=== PATIENT | female | born 1985 | race Caucasian/White ===

== ENCOUNTER 2018-01-25 09:51 | Emergency (ER) | payer OTHER ==
[2018-01-25] MEDS ORDERED: NS 1,000 ML IV ONE (10:56)
--- NOTE | 2018-01-25 11:00 | EDPHY ---
H & P Time Seen by Provider: 01/25/18 10:59 HPI/ROS: Chief complaint. Nausea and vomiting with HPI. Patient is a 2 para 1 32 year old female. 7 half weeks . Nausea and vomiting with this . Has been using coulee just and Zofran but continues to have emesis and decreased food intake. No abdominal pain or vaginal bleeding or spotting. 1 visit to machine plug shaper and apparently ultrasound shows a normal intrauterine . Patient did have significant hyperemesis with her 1st as well. No fever. No chest pain or shortness of breath ROS 10 systems were reviewed and negative with the exception of the elements mentioned in the history of present illness Past Medical/Surgical History: Hyper emesis, asthma Social History: , nonsmoker, no alcohol Smoking Status: Never smoked Physical Exam: General Appearance: Alert pleasant well-developed female mild distress vital signs significant for heart rate 104 Eyes: Pupils equal and round no pallor or injection. ENT, mucous membranes are dry Respiratory: There are no retractions, lungs are clear to auscultation. Cardiovascular: Regular rate and rhythm. Gastrointestinal: Abdomen is soft, gravid, nontender. Normal bowel sounds and no masses Neurological: Awake and alert, sensory and motor exams grossly normal. Skin: Warm and dry, no rashes. Musculoskeletal: Neck is supple nontender. Extremities symmetrical, full range of motion. Psychiatric: Patient is oriented X 3, there is no agitation. Constitutional: Initial Vital Signs Temperature (C) 36.8 C 01/25/18 10:18 Heart Rate 104 H 01/25/18 10:18 Respiratory Rate 16 01/25/18 10:18 Blood Pressure 107/64 01/25/18 10:18 O2 Sat (%) 97 01/25/18 10:18 O2 Delivery Mode Room Air Allergies/Adverse Reactions: No Known Allergies Allergy (Unverified 01/25/18 10:17) Home Medications: Medication Instructions Recorded Albuterol 01/25/18 Folic Acid 01/25/18 Zofran 01/25/18 Medical Decision Making Procedures: Intravenous fluid replacement with D5 L R. 1 L of saline is given as well. Reglan Benadryl IV. Thiamin the IV. ED Course/Re-evaluation: Re-evaluation 1:50 p.m.. Patient is stable. She has been up to urinate and urine results are pending. She is taking oral ice chips without emesis Patient and I discussed laboratory evaluation, treatment plan including criteria for return importance follow-up further evaluation. She expresses understanding and agreement Urine has trace leukocytes. It is sent for culture and sensitivity Re-evaluation again at 2:50 p.m. Patient is stable. She feels well for discharge Differential Diagnosis: Hyperemesis gravidarum. Have considered electrolyte abnormalities, dehydration , urinary tract infection - Data Points Laboratory Results: Laboratory Results 01/25/18 11:00 01/25/18 11:00 01/25/18 01/25/18 01/25/18 13:48 11:00 11:00 WBC 8.75 10^3/uL 10^3/uL (3.80-9.50) RBC 5.08 10^6/uL 10^6/uL (4.18-5.33) Hgb 15.4 g/dL g/dL (12.6-16.3) Hct 43.3 % % (38.0-47.0) MCV 85.2 fL fL (81.5-99.8) MCH 30.3 pg pg (27.9-34.1) MCHC 35.6 g/dL g/dL (32.4-36.7) RDW 12.0 % % (11.5-15.2) Plt Count 191 10^3/uL 10^3/uL (150-400) MPV 10.2 fL fL (8.7-11.7) Neut % (Auto) 75.9 % H % (39.3-74.2) Lymph % (Auto) 16.7 % % (15.0-45.0) [place] % (Auto) 5.3 % % (4.5-13.0) Eos % (Auto) 1.4 % % (0.6-7.6) Baso % (Auto) 0.5 % % (0.3-1.7) Nucleat RBC Rel Count 0.0 % % (0.0-0.2) Absolute Neuts (auto) 6.65 10^3/uL H 10^3/uL (1.70-6.50) Absolute Lymphs (auto) 1.46 10^3/uL 10^3/uL (1.00-3.00) Absolute Monos (auto) 0.46 10^3/uL 10^3/uL (0.30-0.80) Absolute Eos (auto) 0.12 10^3/uL 10^3/uL (0.03-0.40) Absolute Basos (auto) 0.04 10^3/uL 10^3/uL (0.02-0.10) Absolute Nucleated RBC 0.00 10^3/uL 10^3/uL (0-0.01) Immature Gran % 0.2 % % (0.0-1.1) Immature Gran # 0.02 10^3/uL 10^3/uL (0.00-0.10) Sodium 135 mEq/L mEq/L (135-145) Potassium 4.2 mEq/L mEq/L (3.3-5.0) Chloride 101 mEq/L mEq/L (97-110) Carbon Dioxide 22 mEq/l mEq/l (22-31) Anion Gap 12 mEq/L mEq/L (6-14) BUN 13 mg/dL mg/dL (7-23) Creatinine 0.6 mg/dL mg/dL (0.6-1.0) Estimated GFR > 60 Glucose 84 mg/dL mg/dL (70-100) Calcium 9.5 mg/dL mg/dL (8.5-10.4) Urine Color YELLOW Urine Appearance HAZY Urine pH 6.0 (5.0-7.5) Ur Specific [place] 1.019 (1.002-1.030) Urine Protein NEGATIVE (NEGATIVE) Urine Ketones 2+ H (NEGATIVE) Urine Blood NEGATIVE (NEGATIVE) Urine Nitrate NEGATIVE (NEGATIVE) Urine Bilirubin NEGATIVE (NEGATIVE) Urine Urobilinogen NEGATIVE EU EU (0.2-1.0) Ur Leukocyte Esterase NEGATIVE (NEGATIVE) Urine RBC 1-3 /hpf /hpf (0-3) Urine WBC 3-5 /hpf H /hpf (0-3) Ur Epithelial Cells TRACE /lpf /lpf (NONE-1+) Urine Bacteria 2+ /hpf H /hpf (NONE SEEN) Urine Mucus 2+ /lpf H /lpf (NONE-1+) Urine Glucose 1+ H (NEGATIVE) Medications Given: Potassium Chloride 20 meq/ (Lactated Ringer's) 1,000 mls @ 125 mls/hr IV CONT RADHA Stop: 07/24/18 11:29 Last Admin: 01/25/18 11:57 Dose: 1,000 mls Thiamine HCl 100 mg/ Sodium (Chloride) 101 mls @ 202 mls/hr IV DAILY RADHA Stop: 07/24/18 11:14 Last Admin: 01/25/18 11:48 Dose: 101 mls Discontinued Medications Diphenhydramine HCl (Benadryl Injection) 12.5 mg IVP EDNOW ONE Stop: 01/25/18 11:13 Last Admin: 01/25/18 11:33 Dose: 12.5 mg Sodium Chloride (Ns) 1,000 mls @ 0 mls/hr IV ONCE ONE PRN Reason: Wide Open Stop: 01/25/18 10:57 Last Admin: 01/25/18 11:10 Dose: 1,000 mls Metoclopramide HCl (Reglan Injection) 5 mg IVP EDNOW ONE Stop: 01/25/18 11:13 Last Admin: 01/25/18 11:34 Dose: 5 mg Departure - Departure Disposition: Home, Routine, Self-Care Clinical Impression: Hyperemesis gravidarum Condition: Good Instructions: Hyperemesis Gravidarum (ED) Additional Instructions: Frequent, small sips fluids. Try to eat small amounts of food before hungry to always have something in your stomach Zofran and I clearly just for nausea vomiting control Return for worsening symptoms. Re-evaluation by your machine plug shaper in the next 2-3 days. Referrals: NONE *PRIMARY CARE P,. [Primary Care Provider] - As per Instructions Medina Cam MD [Medical Doctor] - As per Instructions
[2018-01-25] MEDS ORDERED: METOCLOPRAMIDE 10 MG/2 ML VIAL IVP ONE (11:12)
[2018-01-25] MEDS ORDERED: THIAMINE HCL 100 MG in NS 100 ML IV SCH (11:15)
[2018-01-25 11:23] LABS: PLATELET COUNT 191 10^3/uL (150-400)
[2018-01-25] MEDS ORDERED: POTASSIUM Cl (KCl) 20 MEQ in LR 1,000 ML IV SCH (11:30)
[2018-01-25] MEDS ORDERED: D5W 1/2 NS 1,000 ML IV SCH (11:45)
[2018-01-25 15:09] VITALS: BP 102/56
== END 2018-01-25 15:10 | disposition home or self-care (01) ==
DX: O21.1 Hyperemesis gravidarum with metabolic disturbance (principal); O99.511 Diseases of the respiratory system complicating pregnancy, first trimester; J45.909 Unspecified asthma, uncomplicated; R82.998 Other abnormal findings in urine; Z3A.01 Less than 8 weeks gestation of pregnancy
CPT/HCPCS: 96374; J1200; J2765; J3411; J3480

== ENCOUNTER → 2018-05-05 | Outpatient (CLI) | payer OTHER | LOC: FIMAGING 07:57 | PROVIDERS: ATTEND Obstetrics & Gynecology | DX: O09.522 Supervision of elderly multigravida, second trimester (principal); Z3A.21 21 weeks gestation of pregnancy ==

== ENCOUNTER → 2018-08-25 | Outpatient (CLI) | payer OTHER | LOC: FIMAGING 10:07 | PROVIDERS: ATTEND Obstetrics & Gynecology | DX: Z34.83 Encounter for supervision of other normal pregnancy, third trimester (principal); Z3A.37 37 weeks gestation of pregnancy ==